=== PATIENT | female | born 1940 | race Caucasian/White ===

== ENCOUNTER 2017-06-04 09:59 | Day surgery (SDC) | payer MEDICARE, MEDICAID ==
[2017-05-31 10:43] LABS: BASOPHILS % (AUTO) 0.6 % (0-1); EOSINOPHILS # (AUTO) 0.1 X10'3 (0-0.9); EOSINOPHILS % (AUTO) 1.4 % (0-6); HEMATOCRIT 43.1 % (35.0-45.0); HEMOGLOBIN 14.6 g/dl (12.0-16.0); LYMPHOCYTES # (AUTO) 1.7 X10'3 (1.1-4.8); MEAN CORPUSCULAR HEMOGLOBIN 30.7 PG (27.0-31.0); MEAN CORPUSCULAR HGB CONC 33.8 % (33.0-36.5); MEAN CORPUSCULAR VOLUME 90.6 FL (78-98); MEAN PLATELET VOLUME 7.3 FL (7.4-10.4); MONOCYTES # (AUTO) 0.5 X10'3 (0-0.9); MONOCYTES % (AUTO) 7.3 % (2-12); NEUTROPHILS # (AUTO) 4.6 X10'3 (1.8-7.7); NEUTROPHILS % (AUTO) 65.7 % (42-75); PLATELET COUNT 263 X10'3 (140-440); RED BLOOD COUNT 4.76 X10'6 (4.20-5.60); WHITE BLOOD COUNT 6.9 X10'3 (4.5-11.0)
[2017-05-31 10:52] LABS: ALBUMIN 3.7 G/DL (3.4-5.0); ANION GAP 8 (8-16); BLOOD UREA NITROGEN 17 MG/DL (7-18); BUN/CREATININE RATIO 18.3 (6.6-38.0); CALCIUM 8.8 MG/DL (8.5-10.1); CHLORIDE 105 MMOL/L (99-107); CREATININE 0.93 MG/DL (0.40-0.90); GLUCOSE 98 MG/DL (70-104); POTASSIUM 3.6 MMOL/L (3.5-5.1); SODIUM 144 MMOL/L (135-145); TOTAL CARBON DIOXIDE 30.7 MMOL/L (24-32); eGFR 59 ML/MIN
[2017-05-31 10:59] LABS: PARTIAL THROMBOPLASTIN TIME 37 SECONDS (22-32); PROTHROMBIN TIME 39.4 SECONDS (9.0-12.0)
[~2017-06-04] VITALS: Ht 160 cm; Wt 81.8 kg
[2017-06-04] VITALS (11 sets, daily range): BP systolic 102–137; BP diastolic 51–89
[2017-06-04] MEDS ORDERED: LISI1TAB9 PO (10:56)
[2017-06-04] MEDS ORDERED: MET0.75G TP (10:56)
[2017-06-04] MEDS ORDERED: ATOR10TA87 PO (10:56)
[2017-06-04] MEDS ORDERED: ESCI10TA54 PO (10:56)
[2017-06-04] MEDS ORDERED: LORA10TA7 PO (10:56)
[2017-06-04] MEDS ORDERED: RESTASIS EACHEYE (10:56)
[2017-06-04] MEDS ORDERED: ASPI-1265 PO (10:56)
[2017-06-04] MEDS ORDERED: MONT10TA24 PO (10:56)
[2017-06-04] MEDS ORDERED: METF500T PO (10:56)
[2017-06-04] MEDS ORDERED: OMEP20CA10 PO (10:56)
[2017-06-04] MEDS ORDERED: COU4T PO (10:56)
[2017-06-04] MEDS ORDERED: CARSR60C PO (10:56)
[2017-06-04] MEDS ORDERED: PROP1DRO7 OP (10:56)
[2017-06-04] MEDS ORDERED: AMIO200T4 PO (10:56)
[2017-06-04] MEDS ORDERED: normal saline 1000ml 1,000 ML IV SCH (11:10)
[2017-06-04] MEDS ORDERED: fentaNYL/PF 50MCG/1 ML 2ML syringe IV ONE (11:10)
[2017-06-04] MEDS ORDERED: MIDAZolam 1mg/ml 10ml vial IV ONE (11:10)
[2017-06-04] MEDS ORDERED: LIDOcaine 1% (10mg/ml) 2ml vial ONE (11:33)
[2017-06-04] MEDS ORDERED: MIDAZolam 5mg/ml 2ml vial IV ONE (12:15)
[2017-06-04 12:32] LABS: INR 2.1 INR; PROTHROMBIN TIME 21.4 SECONDS (9.0-12.0)
== END 2017-06-04 14:31 | disposition home or self-care (01) ==
LOC: SSTAY O 09:59
PROVIDERS: ATTEND Internal Medicine Interventional Cardiology
DX: I48.0 Paroxysmal atrial fibrillation (principal); I10 Essential (primary) hypertension; E78.5 Hyperlipidemia, unspecified; E11.59 Type 2 diabetes mellitus with other circulatory complications; M19.90 Unspecified osteoarthritis, unspecified site; L40.9 Psoriasis, unspecified; Z98.890 Other specified postprocedural states; Z88.2 Allergy status to sulfonamides; Z87.891 Personal history of nicotine dependence; Z79.01 Long term (current) use of anticoagulants; Z79.82 Long term (current) use of aspirin; Z79.84 Long term (current) use of oral hypoglycemic drugs
CPT/HCPCS: 36415; 80048; 85025; 85610; 85730; 92960; 93005; J2250; J3010; J3490; J7030; A4620